=== PATIENT | male | born 1985 | race African-American/Black ===

== ENCOUNTER 2017-07-21 00:07 | Emergency (ER) | payer MEDICARE, MEDICAID ==
[~2017-07-21] VITALS: Ht 180.3 cm; Wt 77.0 kg
[2017-07-21 00:11] VITALS: BP 140/90
== END 2017-07-21 03:00 | disposition left against medical advice (07) ==
LOC: ER 00:07
DX: Z53.21 Procedure and treatment not carried out due to patient leaving prior to being seen by health care provider (principal)

== ENCOUNTER 2025-02-07 11:20 | Emergency (ER) | payer MEDICARE, MEDICAID ==
[~2025-02-07] VITALS: Ht 170.2 cm; Wt 69.0 kg
[2025-02-07 11:22] VITALS: O2SAT 98
[2025-02-07] MEDS: LIDOCAINE HCL 1% 20ML VIAL INFIL ONE (12:30)
[2025-02-07 13:19] LABS: BASOPHILS % 1.3 % (0.0-2.0); EOSINOPHILS % 0.5 % (0.0-5.0); HEMATOCRIT. 44.1 % (42.0-52.0); HEMOGLOBIN. 14.9 g/dL (14.0-18.0); LYMPHOCYTES % 26.2 % (20.0-50.0); MEAN PLATELET VOLUME 8.0 fl (7.4-10.4); MONOCYTES % 10.2 % (2.0-8.0); NEUTROPHILS % 61.8 % (40.0-76.0); PLATELET 192 x1000/uL (130-400); RED BLOOD CELL COUNT 4.68 mill/uL (4.7-6.1); RED CELL DISTRIBUTION WIDTH 15.3 % (11.6-14.6)
[2025-02-07 13:41] LABS: CREATININE 1.1 mg/dL (0.6-1.3); UREA NITROGEN BLOOD 13 mg/dL (9-23)
[2025-02-07 13:42] LABS: ETHANOL BLOOD < 10 mg/dL (<10)
[2025-02-07] MEDS: LEVETIRACETAM 500MG PREMIX 100 ML IV ONE (14:00)
[2025-02-07] MEDS: ONDANSETRON HCL 4MG/2ML INJ IV ONE (14:10)
[2025-02-07 16:26] VITALS: BP 130/80; PULSE 74; RESP 20; TEMP 36.7; O2SAT 98
== END 2025-02-07 16:27 | disposition home or self-care (01) ==
LOC: ER 11:20
DX: S51.812A Laceration without foreign body of left forearm, initial encounter (principal); S61.217A Laceration without foreign body of left little finger without damage to nail, initial encounter; R56.9 Unspecified convulsions; F12.90 Cannabis use, unspecified, uncomplicated; Z79.899 Other long term (current) drug therapy; W19.XXXA Unspecified fall, initial encounter; Y93.89 Activity, other specified; Y92.89 Other specified places as the place of occurrence of the external cause; Y99.8 Other external cause status
CPT/HCPCS: 80048; 80320; 85025; 36415; 70450; 96365; 96375; 99285; J1953; J2003; J2405; A4606; G0480

== ENCOUNTER 2025-05-15 13:31 | Emergency (ER) | payer MEDICARE, MEDICAID ==
[~2025-05-15] VITALS: Ht 172.7 cm; Wt 75.0 kg
[2025-05-15 13:36] VITALS: BP 180/110; PULSE 101; RESP 16; TEMP 37.1; O2SAT 99
== END 2025-05-15 17:14 | disposition home or self-care (01) ==
LOC: ER 14:16
DX: G92.9 Unspecified toxic encephalopathy (principal); F10.129 Alcohol abuse with intoxication, unspecified; I10 Essential (primary) hypertension; F12.90 Cannabis use, unspecified, uncomplicated; Y90.9 Presence of alcohol in blood, level not specified
CPT/HCPCS: 99283

== ENCOUNTER 2025-06-14 03:25 | Emergency (ER) | payer MEDICARE, MEDICAID ==
[~2025-06-14] VITALS: Ht 177.8 cm; Wt 60.0 kg
[2025-06-14 03:28] VITALS: O2SAT 98
[2025-06-14] MEDS: LEVETIRACETAM 500MG PREMIX 100 ML IV ONE (04:35)
[2025-06-14 04:38] LABS: BASOPHILS % 1.0 % (0.0-2.0); EOSINOPHILS % 1.6 % (0.0-5.0); HEMATOCRIT. 44.7 % (42.0-52.0); HEMOGLOBIN. 14.8 g/dL (14.0-18.0); LYMPHOCYTES % 42.0 % (20.0-50.0); MEAN PLATELET VOLUME 7.1 fl (7.4-10.4); MONOCYTES % 11.7 % (2.0-8.0); NEUTROPHILS % 43.7 % (40.0-76.0); PLATELET 237 x1000/uL (130-400); RED BLOOD CELL COUNT 4.72 mill/uL (4.7-6.1); RED CELL DISTRIBUTION WIDTH 13.8 % (11.6-14.6)
[2025-06-14 04:51] LABS: CREATININE 0.8 mg/dL (0.6-1.3); UREA NITROGEN BLOOD 8 mg/dL (9-23)
[2025-06-14 04:52] LABS: ETHANOL BLOOD 257 mg/dL (<10)
[2025-06-14 04:53] LABS: TROPONIN I HIGH SENSITIVITY < 4 ng/L (3.0-53)
[2025-06-14] MEDS ORDERED: KEPP500 MT (05:34)
[2025-06-14 06:45] VITALS: BP 103/63; PULSE 94; RESP 16; TEMP 36.6; O2SAT 98
== END 2025-06-14 06:48 | disposition home or self-care (01) ==
LOC: ER 03:25
DX: G40.909 Epilepsy, unspecified, not intractable, without status epilepticus (principal); F10.20 Alcohol dependence, uncomplicated; I10 Essential (primary) hypertension; Y90.8 Blood alcohol level of 240 mg/100 ml or more
CPT/HCPCS: 80048; 80320; 82962; 85025; 84484; 36415; 93005; 96365; 99284; J1953; G0480